=== PATIENT | female | born 1985 | race Caucasian/White ===

== ENCOUNTER 2025-04-12 08:06 | Emergency (ER) | payer BC ==
[~2025-04-12] VITALS: Ht 160 cm; Wt 70.0 kg
[2025-04-12 08:22] VITALS: TEMP 97.3
[2025-04-12] MEDS: LIDOcaine 2% Viscous 15ml cup MM ONE (09:17)
[2025-04-12] MEDS: mag hydrox/Alum hydrox/simeth 30ml oral suspension PO ONE (09:17)
--- NOTE | 2025-04-12 09:26 | Physician Documentation ---
History of Present Illness ~ Chief Complaint: Abdominal Pain Stated Complaint: ABDOMINAL PAIN Time Seen by MD: 08:49 Source: patient Mode of Arrival: Ambulatory Exam Limitations: no limitations HPI Chief Complaint: Abdominal pain/epigastric pain Caveat: None Independent Historians: None History of Present Illness: Patient is a 39-year-old healthy woman who comes in complaining of epigastric pain that began some time the proximally one week ago. Pain is sharp. Patient states that she has had abdominal problems for years. Patient is scheduled for an endoscopy in April. Patient sees and allopathic provider that has tested are positive for H pylori but she has not been able to get treatment. She tested positive in September and tested positive more recently. Patient has been on allopathic supplements for Streptococcus in H p ylori. Patient describes burning in her chest, reflux and epigastric pain that is worse at night that keeps her awake. Patient also complains of a sore throat in the morning. No vomiting. No diarrhea. No fever. Review of systems: All systems were reviewed and are negative except for what is indicated in the history of present illness. Past Medical History: GERD Past Surgical History: None Social History: No tobacco use, no alcohol use, no drug use Medications: Reviewed as documented Nursing Notes Allergies: Reviewed as documented in Nursing Notes Medication Reconciliation Allergies: Coded Allergies: No Known Allergies (Unverified , 04/12/25) Physical Exam Vital Signs: Temperature: 97.3, Source: Temporal, Heart Rate: 88, Respiratory Rate: 15, BP: 127/70, Pulse Oximetry: 99, Weight: 70.000 Oxygen Flow Rate: 0 Progress Results/Orders Results/Orders Completed Orders - RASHID GEE MD CMP (04/12/25 08:50) Cbc/Diff (04/12/25 08:50) Lipase (04/12/25 08:50) Mag & Alum Hydrox/Simeth Susp (Maalox Or (04/12/25 09:05) Sucralfate Tablet (Carafate Tablet) (04/12/25 09:05) Lidocaine 2% Viscous (Xylocaine 2% Visco (04/12/25 09:05) H Pylori Ab (04/12/25 09:16) Medications Received in ER Medications (Trade) Dose Ordered Sig/Sherman Route PRN Reason Start Time Stop Time Status Last Admin Dose Admin (Maalox oral suspension) 30 ml ONCE ONCE PO 04/12/25 09:05 04/12/25 09:07 DC 04/12/25 09:17 30 ML (Carafate tablet) 1 gm ONCE ONCE PO 04/12/25 09:05 04/12/25 09:07 DC 04/12/25 09:16 1 GM (Xylocaine 2% Viscous 15mL cup) 20 ml ONCE ONCE MM 04/12/25 09:05 04/12/25 09:07 DC 04/12/25 09:17 20 ML Vital Signs 04/12/25 04/12/25 04/12/25 08:22 08:55 10:39 Temp 97.3 Pulse 88 71 Resp 16 15 15 B/P (MAP) 127/70 110/81 (91) Pulse Ox 99 98 O2 Flow Rate 0 0 Laboratory Tests Test 04/12/25 09:51 White Blood Count 7.2 Red Blood Count 4.77 Hemoglobin 13.8 Hematocrit 40.0 Mean Corpuscular Volume 84.0 Mean Corpuscular Hemoglobin 28.9 Mean Corpuscular Hemoglobin Concent 34.4 Red Cell Distribution Width 13.4 Platelet Count 207 Mean Platelet Volume 8.8 Neutrophils (%) (Auto) 67.4 Lymphocytes (%) (Auto) 25.0 Monocytes (%) (Auto) 6.8 Eosinophils (%) (Auto) 0.4 Basophils (%) (Auto) 0.4 Neutrophils # (Auto) 4.9 Lymphocytes # (Auto) 1.8 Monocytes # (Auto) 0.5 Eosinophils # (Auto) 0.0 Basophils # (Auto) 0.0 CBC Comment Sodium Level 140 Potassium Level 4.1 Chloride Level 106 Carbon Dioxide Level 26.7 Anion Gap 7 L Blood Urea Nitrogen 10 Creatinine 0.65 Estimated GFR/1.73 m2 > 90 BUN/Creatinine Ratio 15.4 Glucose Level 87 Calcium Level 8.6 Total Bilirubin 0.2 Aspartate Amino Transf (AST/SGOT) 14 Alanine Aminotransferase (ALT/SGPT) 19 Alkaline Phosphatase 97 Total Protein 7.3 Albumin 3.8 Globulin 3.5 Albumin/Globulin Ratio 1.1 Lipase 48 Chemistry Comments Helicobacter pylori Antibodies Negative Medical Decision Making Additional info obtained from: old records Findings Differential diagnosis includes but is not limited to: Acute pancreatitis, acute cholecystitis, biliary colic, cholelithiasis, gastritis, peptic ulcer disease, duodenitis, GERD upper GI bleed Laboratory data independent interpretation: CBC: UNREMARKABLE CMP: UNREMARKABLE H pylori: Negative Emergency department course/medical decision-making: Patient is a 39-year-old woman who has been having epigastric pain and reflux four weeks. Patient is given a GI cocktail in her pain improved significantly in the is currently 3/10. Patient is negative for H pylori. Lab work is unremarkable. No evidence for an upper GI bleed. Patient is prescribed Carafate. Patient has an appointment with her atg architect on May 04 for endoscopy. Patient is stable for discharge. Test results, treatment plan and all the above discussed with the patient. Departure Time of Disposition: 10:59 Disposition: HOME / SELF CARE / HOMELESS Impression: Primary Impression: GERD (gastroesophageal reflux disease) Qualified Codes: K21.9 - Gastro-esophageal reflux disease without esophagitis Condition: Stable Discharge Instructions: Food Choices for Gastroesophageal Reflux Disease, Adult, [id number], Gastroesophageal Reflux Disease, Adult, [id number] Additional Instructions: YOU HAD A GI COCKTAIL THAT CONTAINED CARAFATE, MAALOX AND VISCOUS LIDOCAINE. RETURN TO THE ER IF YOUR SYMPTOMS WORSEN. FOLLOW UP WITH YOUR OPTICAL DISPENSER SCHEDULED FOR YOUR ENDOSCOPY ON . Prescriptions Sucralfate (Carafate) 1 Gram/10 Ml Oral.susp 10 ML PO [id number] for 30 Days, #1260 ML 0 Refills before food and bedtime Prov: RASHID GEE MD 04/12/25 Education Educated: Patient Educated regarding: diagnosis, treatment, need for follow up Signature Scribe Signature: No scribe Attestation: No scribe RASHID GEE MD Apr 12, 2025 09:26
[2025-04-12 10:34] LABS: MEAN PLATELET VOLUME 8.8 FL (7.4-10.4); RED CELL DISTRIBUTION WIDTH 13.4 % (11.5-14.5)
[2025-04-12 10:46] LABS: H PYLORI ANTIBODY NEGATIVE (Neg)
[2025-04-12 10:51] LABS: CREATININE 0.65 MG/DL (0.40-0.90); TOTAL CARBON DIOXIDE 26.7 MMOL/L (24-32); eCRCL 98 ML/MIN; eGFR > 90 ML/MIN
[2025-04-12] MEDS ORDERED: SUCR1ORA12 PO (11:00)
[2025-04-12 11:20] VITALS: BP 109/80; PULSE 73; RESP 16; O2SAT 98
== END 2025-04-12 11:23 | disposition home or self-care (01) ==
LOC: ER 08:07
DX: K21.9 Gastro-esophageal reflux disease without esophagitis (principal)
CPT/HCPCS: 36415; 80053; 83690; 85025; 86677; 99284